=== PATIENT | male | born 1960 | race Caucasian/White ===

== ENCOUNTER → 2019-05-09 13:16 | Outpatient (BNVA) | payer MEDICARE, SELFPAY | PROVIDERS: Family Provider Emergency Medicine Emergency Medical Services; Visit Provider Nurse Practitioner Family | DX: B99.9 Unspecified infectious disease (principal); S91.312A Laceration without foreign body, left foot, initial encounter; X58.XXXA Exposure to other specified factors, initial encounter | CPT/HCPCS: 73620 ==